=== PATIENT | male | born 1960 | race Caucasian/White ===

== ENCOUNTER 2022-02-20 12:18 | Emergency (ER) | payer OTHER, BC, MEDICARE ==
[2022-02-20 13:24] LABS: #Basophils 0.1 thou/uL (0.0-0.2); #Eosinphils 0.3 thou/uL (0.0-0.7); #Lymphocytes 1.4 thou/uL (1.20-3.40); #Monocytes 0.5 thou/uL (0.11-0.59); #Neutrophils 3.7 thou/uL (1.40-6.50); %Basophils 1.6 % (0.0-1.0); %Eosinophils 5.2 % (0.0-10.0); %Lymphocytes 23.5 % (21.0-51.0); %Monocytes 8.9 % (0.0-10.0); %Neutrophils 60.8 % (42.0-75.0); Hemoglobin 11.2 g/dL (14.0-18.0); Mean Corpuscular HGB CONC 29.5 g/dL (32.0-36.0); Mean Corpuscular Hemoglobin 28.6 pg (27.0-31.0); Mean Corpuscular Volume 96.7 fL (78.0-98.0); Mean Platelet Volume 11.9 fL (7.4-10.4); Platelet Count 250 thou/uL (130-400); RBC Distribution Width 13.5 % (11.5-14.5); Red Blood Cell (RBC) Count 3.93 mill/uL (4.70-6.10)
[2022-02-20 13:31] LABS: ALT (SGPT) 16 U/L (8-55); AST (SGOT) 18 U/L (5-34); Albumin 3.9 g/dL (3.5-5.0); Alkaline Phosphatase 78 U/L (40-110); Anion Gap 13 mmol/L (10-20); BUN (Urea Nitrogen) 27 mg/dL (8.4-25.7); Bilirubin, Total 0.7 mg/dL (0.2-1.2); Calc. Creatinine Clearance 0 mL/min (70-130); Calcium 8.8 mg/dL (7.8-10.44); Carbon Dioxide 20 mmol/L (22-29); Chloride 111 mmol/L (98-107); Globulin 2.9 g/dL (2.4-3.5); Glucose 119 mg/dL (70-105); Potassium 3.4 mmol/L (3.5-5.1); Protein, Total 6.8 g/dL (6.0-8.3); Sodium 141 mmol/L (136-145)
[2022-02-20 13:34] LABS: INR-International Normal Ratio 1.1; Prothrombin Time 14.3 sec (12.0-14.7)
[2022-02-20 13:35] LABS: PTT 33.1 sec (22.9-36.1)
[2022-02-20] MEDS ORDERED: Morphine 4 MG/ML VIAL ONE (14:00)
== END 2022-02-20 21:52 | disposition home or self-care (01) ==
LOC: NAV ERS 12:18
DX: S01.112A Laceration without foreign body of left eyelid and periocular area, initial encounter (principal); K21.9 Gastro-esophageal reflux disease without esophagitis; I10 Essential (primary) hypertension; G47.30 Sleep apnea, unspecified; W54.1XXA Struck by dog, initial encounter; Z87.891 Personal history of nicotine dependence; Z79.899 Other long term (current) drug therapy
CPT/HCPCS: 12011; 70450; 72125; 80053; 85025; 85610; 85730; 96374; 96376; J2270

== ENCOUNTER 2022-09-26 14:52 | Emergency (ER) | payer BC, MEDICARE ==
[2022-09-26] MEDS ORDERED: Dexamethasone 20 MG/5 ML VIAL ONE (15:31)
== END 2022-09-26 16:07 | disposition home or self-care (01) ==
LOC: NAV ERS 14:52
DX: J06.9 Acute upper respiratory infection, unspecified (principal); Z87.891 Personal history of nicotine dependence
CPT/HCPCS: 71045; 87804; J1100